=== PATIENT | female | born 1950 | race Caucasian/White ===

== ENCOUNTER 2018-10-04 10:22 | Day surgery (SDC) | payer OTHER ==
[2018-10-02 11:11] VITALS: BMI 21.1
[~2018-10-04 10:22] MED LIST: ACETAMINOPHEN 325 MG TABLET (FP) PO PRN; CYCLOPENTOLATE HCL 1% OPHTH SOLN 2 ML BOTTLE OP SCH; KETOROLAC TROMETHAMINE 0.5% EYE DROP 1 DROP DROPS OP SCH; OFLOXACIN 0.3% OPHTHALMIC SOLUTION 5 ML BOTTLE OP SCH; PHENYLEPHRINE 2.5% OPHTH SOLN 15 ML BOTTLE OP SCH; TROPICAMIDE 1% OPHTH SOLN 15 ML BOTTLE OP SCH
[2018-10-04] MEDS ORDERED: CYCLOPENTOLATE HCL 1% OPHTH SOLN 2 ML BOTTLE ONE (10:43)
[2018-10-04] MEDS ORDERED: KETOROLAC TROMETHAMINE 0.5% EYE DROP 1 DROP DROPS ONE (10:43)
[2018-10-04] MEDS ORDERED: OFLOXACIN 0.3% OPHTHALMIC SOLUTION 5 ML BOTTLE ONE (10:43)
[2018-10-04] MEDS ORDERED: TROPICAMIDE 1% OPHTH SOLN 15 ML BOTTLE ONE (10:43)
[2018-10-04] MEDS ORDERED: PHENYLEPHRINE 2.5% OPHTH SOLN 15 ML BOTTLE ONE (10:43)
[2018-10-04] MEDS ORDERED: PHENYLEPHRINE 2.5% OPHTH SOLN 15 ML BOTTLE OD ONE ×3 (10:53→11:02)
[2018-10-04] MEDS ORDERED: KETOROLAC TROMETHAMINE 0.5% EYE DROP 1 DROP DROPS OD ONE ×3 (10:53→11:02)
[2018-10-04] MEDS ORDERED: TROPICAMIDE 1% OPHTH SOLN 15 ML BOTTLE OD ONE ×3 (10:53→11:02)
[2018-10-04] MEDS ORDERED: OFLOXACIN 0.3% OPHTHALMIC SOLUTION 5 ML BOTTLE OD ONE ×3 (10:53→11:02)
[2018-10-04] MEDS ORDERED: CYCLOPENTOLATE HCL 1% OPHTH SOLN 2 ML BOTTLE OD ONE ×3 (10:53→11:02)
[2018-10-04] MEDS ORDERED: EPINEPHrine/PF 1 MG/1 ML (1:1,000) AMPULE ONE (11:28)
[2018-10-04] MEDS ORDERED: BUPIVACAINE HCL/PF 0.75% 10 ML VIAL ONE (11:28)
[2018-10-04] MEDS ORDERED: LIDOCAINE HCL/PF 2% SDV 5ML VIAL ONE ×2 (11:28→11:43)
[2018-10-04] MEDS ORDERED: TRYPAN BLUE 0.5 ML DISP.SYRIN ONE (11:29)
[2018-10-04] MEDS ORDERED: MIDAZOLAM HCL 2 MG/2 ML SINGLE DOSE VIAL ONE (11:33)
[2018-10-04] MEDS ORDERED: PROPOFOL 20 ML ONE (11:43)
[2018-10-04] MEDS ORDERED: LIDOCAINE HCL/PF 2% SDV 5ML VIAL PNB ONE (11:48)
[2018-10-04] MEDS ORDERED: BUPIVACAINE HCL/PF 0.75% 10 ML VIAL PNB ONE ×2 (11:48→11:49)
[2018-10-04] MEDS ORDERED: LIDOCAINE HCL/PF 2% SDV 5ML VIAL INF ONE (11:49)
[2018-10-04] MEDS ORDERED: LIDOCAINE HCL 1% PRESERVATIVE FREE - 30ML VIAL IO ONE (11:57)
[2018-10-04] MEDS ORDERED: CHONDROITIN SU A/HYALUR SOD 1 KIT IO ONE (11:57)
[2018-10-04] MEDS ORDERED: TRYPAN BLUE 0.5 ML DISP.SYRIN IO ONE (11:58)
[2018-10-04] MEDS ORDERED: EPINEPHrine/PF 1 MG/1 ML (1:1,000) AMPULE IO ONE (12:05)
[2018-10-04] MEDS ORDERED: CHONDROITIN SU A/HYALUR SOD 1 KIT ONE (12:52)
[2018-10-04 13:26] VITALS: BP 133/60; PULSE 72; TEMP 97.5
--- NOTE | 2018-10-04 13:33 | OP ---
DATE OF OPERATION: 10/04/2018 SURGEON: Gato Berrios M.D. PREOPERATIVE DIAGNOSIS: Cataract, right eye. POSTOPERATIVE DIAGNOSIS: Cataract, right eye. OPERATION: Phacoemulsification of right cataract with capsular staining with Trypan blue and posterior chamber intraocular lens implantation. The lens used SN60WF, 25.0 diopter power, serial No. [id number]. ANESTHESIA: Peribulbar/Modified Van Lint/MAC. COMPLICATIONS: None. PROCEDURE: The patient was brought to the operating room and correctly identified along with the operative site as well as the correct intraocular lens gustafson. She was then given a peribulbar block under sedation with 5 mL of a 1:1 mixture of 2% Lidocaine and 0.75% Bupivacaine. Two mL of the same mixture was given as a modified Van Lint block. The eye was then prepped and draped in the usual sterile fashion including 5% Betadine solution in the conjunctival sac and an eyelid drape. An eyelid speculum was then placed into the right eye. A paracentesis port was created. The anterior chamber was noted to be shallow, and intracameral lidocaine was given. The lid speculum was adjusted. However, the anterior chamber was still noted to be shallow from likely posterior positive pressure. The patient was instructed to try to relax, and this still did not change the anterior chamber depth. Decision was then made to stain the capsule with Trypan blue to assist in the capsulorrhexis. So, it was stained with an air bubble. The viscoelastic was then injected to inflate the anterior chamber. A temporal clear corneal wound was created. A continuous circular capsulorrhexis was performed. The nucleus was then hydro-dissected with BSS and removed with the phacoemulsification via the [id number] approach. The remaining cortical material was irrigated and aspirated from the eye. The viscoelastic was then injected to inflate the capsular bag. The lens was injected into the capsular bag. The viscoelastic was then removed with the irrigation aspiration port, and all wounds were then tested and found to be watertight. No suture was placed. The anterior chamber was noted to be stable. The intraocular lens was centered and covered by the anterior capsular border. Topical Vancomycin and Betadine was given, the eye patched and shielded, and the patient discharged from the operating room in a stable condition. GATO BERRIOS M.D. [id number]
== END 2018-10-04 13:20 | disposition home or self-care (01) ==
LOC: JASU-SURG 10:22
PROVIDERS: ATTEND Ophthalmology
PROC: 08RJ3JZ Replacement of Right Lens with Synthetic Substitute, Percutaneous Approach (ICD-10-PCS; principal; 2018-10-04 12:00)
DX: H26.9 Unspecified cataract (principal); E11.9 Type 2 diabetes mellitus without complications; Z79.84 Long term (current) use of oral hypoglycemic drugs

== ENCOUNTER 2018-10-18 08:37 | Day surgery (SDC) | payer OTHER ==
[2018-10-17 09:36] VITALS: BMI 21.1
[2018-10-18] MEDS: PHENYLEPHRINE 2.5% OPHTH SOLN 15 ML BOTTLE OP SCH ×4 (08:00→09:45)
[2018-10-18] MEDS: CYCLOPENTOLATE HCL 1% OPHTH SOLN 2 ML BOTTLE OP SCH ×5 (08:00→09:50)
[2018-10-18] MEDS: OFLOXACIN 0.3% OPHTHALMIC SOLUTION 5 ML BOTTLE OP SCH ×5 (08:00→09:50)
[2018-10-18] MEDS: TROPICAMIDE 1% OPHTH SOLN 15 ML BOTTLE OP SCH ×4 (08:00→09:45)
[2018-10-18] MEDS: KETOROLAC TROMETHAMINE 0.5% EYE DROP 1 DROP DROPS OP SCH ×5 (08:00→09:50)
[~2018-10-18 08:37] MED LIST changes: +BSS (NA/CA/MG/K) BALANCED SALT SOLUTION OPHTH SOLN 15 ML BOTTLE IO ONE; +BUPIVACAINE HCL/PF 0.75% 10 ML VIAL NR ONE; +CHONDROITIN SU A/HYALUR SOD 1 KIT IO ONE; -CYCLOPENTOLATE HCL 1% OPHTH SOLN 2 ML BOTTLE OP SCH; -KETOROLAC TROMETHAMINE 0.5% EYE DROP 1 DROP DROPS OP SCH; +LIDOCAINE HCL 1% PRESERVATIVE FREE - 30ML VIAL IO ONE; +LIDOCAINE HCL/PF 2% SDV 5ML VIAL INF ONE; -OFLOXACIN 0.3% OPHTHALMIC SOLUTION 5 ML BOTTLE OP SCH; -PHENYLEPHRINE 2.5% OPHTH SOLN 15 ML BOTTLE OP SCH; +POVIDONE-IODINE 5% OPHTHALMIC PREP 30 ML SOLUTION OS ONE; +TETRACAINE 0.5% OPHTH SOLN 2 ML BOTTLE OS ONE; -TROPICAMIDE 1% OPHTH SOLN 15 ML BOTTLE OP SCH; +VANCOMYCIN 500 MG VIAL (RESTRICTED TO ID ONLY) IVPB ONE
[2018-10-18] MEDS ORDERED: OFLOXACIN 0.3% OPHTHALMIC SOLUTION 5 ML BOTTLE ONE (08:47)
[2018-10-18] MEDS ORDERED: CYCLOPENTOLATE HCL 1% OPHTH SOLN 2 ML BOTTLE ONE (08:48)
[2018-10-18] MEDS ORDERED: TROPICAMIDE 1% OPHTH SOLN 15 ML BOTTLE ONE (08:48)
[2018-10-18] MEDS ORDERED: PHENYLEPHRINE 2.5% OPHTH SOLN 15 ML BOTTLE ONE (08:48)
[2018-10-18] MEDS ORDERED: KETOROLAC TROMETHAMINE 0.5% EYE DROP 1 DROP DROPS ONE (08:48)
[2018-10-18] MEDS ORDERED: EPINEPHrine/PF 1 MG/1 ML (1:1,000) AMPULE ONE (08:57)
[2018-10-18] MEDS ORDERED: BUPIVACAINE HCL/PF 0.75% 10 ML VIAL ONE (08:57)
[2018-10-18] MEDS ORDERED: LIDOCAINE HCL/PF 2% SDV 5ML VIAL ONE (08:58)
[2018-10-18] MEDS ORDERED: VANCOMYCIN 500 MG VIAL (RESTRICTED TO ID ONLY) ONE (08:58)
[2018-10-18] MEDS ORDERED: BSS (NA/CA/MG/K) BALANCED SALT SOLUTION OPHTH SOLN 15 ML BOTTLE ONE (08:58)
[2018-10-18] MEDS ORDERED: LIDOCAINE HCL/PF 1% SDV 5ML VIAL ONE (08:58)
[2018-10-18] MEDS ORDERED: POVIDONE-IODINE 5% OPHTHALMIC PREP 30 ML SOLUTION ONE (08:58)
[2018-10-18 09:04] VITALS: TEMP 97.7
[2018-10-18] MEDS ORDERED: MIDAZOLAM HCL 2 MG/2 ML SINGLE DOSE VIAL ONE (09:18)
[2018-10-18] MEDS ORDERED: PROPOFOL 20 ML ONE (09:19)
[2018-10-18] MEDS ORDERED: CHONDROITIN SU A/HYALUR SOD 1 KIT ONE (09:24)
[2018-10-18] MEDS ORDERED: TROPICAMIDE 1% OPHTH SOLN 15 ML BOTTLE OP ONE (09:50)
[2018-10-18] MEDS ORDERED: PHENYLEPHRINE 2.5% OPHTH SOLN 15 ML BOTTLE OP ONE (09:50)
[2018-10-18] MEDS ORDERED: BUPIVACAINE HCL/PF 0.75% 10 ML VIAL NR ONE (10:06)
[2018-10-18] MEDS ORDERED: LIDOCAINE HCL/PF 2% SDV 5ML VIAL INF ONE (10:06)
[2018-10-18] MEDS ORDERED: TETRACAINE 0.5% OPHTH SOLN 2 ML BOTTLE OS ONE (10:09)
[2018-10-18] MEDS ORDERED: POVIDONE-IODINE 5% OPHTHALMIC PREP 30 ML SOLUTION OS ONE (10:10)
[2018-10-18] MEDS ORDERED: BSS (NA/CA/MG/K) BALANCED SALT SOLUTION OPHTH SOLN 15 ML BOTTLE IO ONE (10:16)
[2018-10-18] MEDS ORDERED: LIDOCAINE HCL 1% PRESERVATIVE FREE - 30ML VIAL IO ONE (10:17)
[2018-10-18] MEDS ORDERED: CHONDROITIN SU A/HYALUR SOD 1 KIT IO ONE (10:18)
[2018-10-18] MEDS ORDERED: EPINEPHrine/PF 1 MG/1 ML (1:1,000) AMPULE SQ ONE (10:23)
[2018-10-18] MEDS ORDERED: VANCOMYCIN 500 MG VIAL (RESTRICTED TO ID ONLY) IVPB ONE (10:33)
--- NOTE | 2018-10-18 11:23 | SPEC ---
DATE OF OPERATION: 10/18/2018 PREOPERATIVE DIAGNOSIS: Cataract, left eye. POSTOPERATIVE DIAGNOSIS: Cataract, left eye. PROCEDURE: Phacoemulsification of left cataract with posterior chamber intraocular lens implantation, lens used SN60WF, 25.0 diopter power, serial No. [id number]. SURGEON: Gil Carvalho M.D. ANESTHESIA: Peribulbar/Modified Van Lint/MAC. COMPLICATIONS: None. PROCEDURE: The patient was brought to the operating room and correctly identified along with the operative site and a correct intraocular lens gustafson. The patient was then given a peribulbar block under sedation with 5 mL of a 1:1 mixture of 2% Lidocaine and 0.5% Bupivacaine. Two to 3 mL of the same mixture was given as a modified Van Lint block. The eye was then prepped and draped in the usual sterile fashion including 5% Betadine solution in the conjunctival sac and an eyelid drape. An eyelid speculum was then placed into the eye. A paracentesis port was created. Viscoelastic was injected to inflate the anterior chamber. A temporal clear corneal wound was created. A continuous circular capsulorrhexis was performed. The nucleus was then hydro-dissected and removed phacoemulsification via the [id number]-pdx-[id number] approach. The remaining cortical material was irrigated and aspirated from the eye. Viscoelastic was injected to inflate the capsular bag. The lens was injected into the capsular bag. Viscoelastic was then irrigated and aspirated from the eye. The intraocular lens was noted to be well centered and covered by the anterior capsular border. All wounds were found to be watertight. Topical Vancomycin was given. The eye patch and shield were placed. The patient was discharged from the operating room in stable condition. Angelo HERNANDEZ/[id number]
[2018-10-18 11:34] VITALS: BP 113/59; PULSE 73
== END 2018-10-18 11:35 | disposition home or self-care (01) ==
LOC: JASU-SURG 08:37
PROVIDERS: ATTEND Ophthalmology
PROC: 08RK3JZ Replacement of Left Lens with Synthetic Substitute, Percutaneous Approach (ICD-10-PCS; principal; 2018-10-18 10:00)
DX: H26.9 Unspecified cataract (principal)
CPT/HCPCS: 82962

== ENCOUNTER 2023-04-19 03:40 | Day surgery (SDC) | payer OTHER ==
[2023-04-11 14:04] VITALS: BMI 29.5
[2023-04-19 08:24] VITALS: RESP 20
[2023-04-19] MEDS ORDERED: PROPOFOL 20 ML ONE (10:07)
[2023-04-19 11:59] VITALS: BP 164/63; PULSE 68; TEMP 97.8
== END 2023-04-19 12:09 | disposition home or self-care (01) ==
LOC: JASU-SURG 03:40
PROVIDERS: ATTEND Urology
PROC: 0TF3XZZ Fragmentation in Right Kidney Pelvis, External Approach (ICD-10-PCS; principal; 2023-04-19 10:00)
DX: N20.0 Calculus of kidney (principal)
CPT/HCPCS: 82962

== ENCOUNTER 2023-05-11 10:05 | Day surgery (SDC) | payer OTHER ==
[2023-05-10 09:52] VITALS: BMI 20.2
[2023-05-11 10:54] VITALS: RESP 18; TEMP 98
[2023-05-11 12:50] VITALS: BP 130/73; PULSE 86
== END 2023-05-11 12:45 | disposition home or self-care (01) ==
LOC: FASU-ENDO 10:05
PROVIDERS: ATTEND Internal Medicine Gastroenterology
PROC: 0DJD8ZZ Inspection of Lower Intestinal Tract, Via Natural or Artificial Opening Endoscopic (ICD-10-PCS; principal; 2023-05-11 11:51)
DX: Z12.11 Encounter for screening for malignant neoplasm of colon (principal); K57.30 Diverticulosis of large intestine without perforation or abscess without bleeding; K64.1 Second degree hemorrhoids
CPT/HCPCS: 82962